=== PATIENT | male | born 1965 | race Caucasian/White ===

== ENCOUNTER 2021-06-20 15:58 | Outpatient (CLI) | payer BC, SELFPAY ==
[2021-06-20] MEDS: 0.9% Saline Lock 10 ML Syringe IV (16:12)
--- NOTE | 2021-06-20 16:15 | NURSING ---
Pt started c/o of Nausea. Noted pt greyish pallar, then pt passed out. Sternal rub did not awaken pt. Pulse noted. SOFTWARE LICENSING ANALYST called. Pt became diaphoretic. Pt slowly became more reponsive. See VS. Dr Malin and SOFTWARE LICENSING ANALYST team requested pt be taken to ER for evaluations. Family notified.
[2021-06-20 16:31] LABS: Bedside Glucose 110 mg/dL (70-110)
[2021-06-20 18:31] VITALS: BP 124/82; PULSE 81; RESP 16; TEMP 38.5; O2SAT 95; BMI 34.2
[2021-06-20 19:00] VITALS: BP 123/82; PULSE 75; RESP 18; TEMP 38.9; O2SAT 100
[2021-06-20] MEDS: Acetaminophen 325 MG Tablet 650 MG PO (19:22)
[2021-06-20 20:10] VITALS: BP 123/82; PULSE 82; RESP 16; TEMP 37.9; O2SAT 100
--- NOTE | 2021-06-20 20:15 | NURSING ---
1815 PT RETURNED FROM ER TO COMPLETE INFUSION.
== END 2021-06-20 20:10 | disposition home or self-care (01) ==
LOC: ICUOUT 15:59 → MS2 15:59
PROVIDERS: Referring Provider Nurse Practitioner Acute Care; Visit Provider Nurse Practitioner Acute Care
DX: Z23 Encounter for immunization (principal); U07.1 COVID-19
CPT/HCPCS: 82962; J7050; M0243; A4216; Q0244

== ENCOUNTER 2021-06-20 16:38 | Emergency (ER) | payer BC, SELFPAY ==
--- NOTE | 2021-06-20 16:18 | EKG12_ITS ---
Test Reason : Blood Pressure : / mmHG Vent. Rate : 081 BPM Atrial Rate : 081 BPM P-R Int : 148 ms QRS Dur : 080 ms QT Int : 364 ms P-R-T Axes : 035 -10 020 degrees QTc Int : 422 ms Normal sinus rhythm Normal ECG Confirmed by FAUSTO PATEL, LUIZ ([id number]), editor book [facility] ([id number]) on 06/26/2021 7:37:08 AM Referred By: Confirmed By:LUIZ LAMBERT MD
[2021-06-20 16:39] VITALS: BP 112/69; PULSE 76; RESP 15; TEMP 37.8; O2SAT 97; BMI 35.0
[2021-06-20 16:43] VITALS: BP 112/69; PULSE 75; PULSE 76; RESP 15; TEMP 37.8; O2SAT 96; O2SAT 97
--- NOTE | 2021-06-20 17:31 | EKG12_ITS ---
Test Reason : SYNCOPE Blood Pressure : / mmHG Vent. Rate : 074 BPM Atrial Rate : 074 BPM P-R Int : 154 ms QRS Dur : 084 ms QT Int : 388 ms P-R-T Axes : 039 002 017 degrees QTc Int : 430 ms Normal sinus rhythm Normal ECG Confirmed by FAUSTO PATEL, LUIZ ([id number]), photograph editor [employer] [employer]ANTE ([id number]) on 06/25/2021 12:40:30 PM Referred By: AURY Confirmed By:LUIZ LAMBERT MD
--- NOTE | 2021-06-20 17:32 | EDS_ITS ---
HPI History of Present Illness Chief Complaint: Syncope Informant: patient Narrative Narrative: Patient is a 55-year-old male with recent diagnosis of Covid presenting after syncopal episode. Patient went to the infusion center today to get a monoclonal antibody infusion. Shortly after receiving the IV he started to feel nauseous. He then became very diaphoretic and pale. Patient lost consciousness. Was described as his eyes rolling back in his head. No report of any seizure activity. After couple minutes patient returned to his baseline. He currently has no complaints. A rapid response was called and he was sent to the emergency room. Patient not yet received any medications. Patient states he still feels a little off which is how is been going to last week with Covid but denies any acute symptoms at this time. No point did he have any chest pain. [facility] Medical History Fatigue SOB (shortness of breath) Home Medications NK 06/20/21 [History Last Taken Unknown] Allergy/AdvReac Type Severity Reaction Status Date / Time Penicillins Allergy Rash Verified 06/20/21 09:03 Family History Father CVA (cerebral vascular accident) Cancer Hypertension Other Arthritis Social History Smoking Status: Former smoker alcohol intake: current alcohol intake frequency: a few times a month [facility] ED Constitutional Constitutional ED: Reports chills, malaise and other Details: syncope ; Denies fever(s) Eyes Eyes: Denies blurry vision or loss of vision ENT ENT ED: Denies rhinorrhea or sore throat Cardiovascular Cardiovascular: Denies chest pain or dizziness Respiratory/Chest Respiratory/Chest: Reports cough; Denies dyspnea Gastrointestinal Gastrointestinal: Reports nausea; Denies vomiting Genitourinary Genitourinary ED: Denies dysuria or hematuria Musculoskeletal Musculoskeletal: Denies arthralgias or myalgias Integumentary Denies rash or wounds Neurologic Neurologic: Denies focal weakness or headache(s) Psychiatric Psychiatric: Denies anxiety or behavioral changes EXAM Physical Exam Const Vital Signs: 06/20/21 16:39 06/20/21 16:43 Temperature 100.1 F H 100.1 F H Temperature Source Oral Oral Pulse Rate 76 76 Respiratory Rate 15 15 Respiratory Effort Normal Respiratory Pattern Normal Blood Pressure 112/69 112/69 Blood Pressure Mean 83 83 Pulse Ox 97 96 Oxygen Delivery Method Room Air Room Air Positive well nourished and well developed General Appearance ED: well developed HEENT Reports moist mucous membranes tenderness Eyes PERRL and EOMs intact bilaterally Neck supple and no JVD Chest Wall inspection of chest normal Resp normal respiratory effort Auscultation: diminished lung sounds bilateral lower Cardio regular rate, regular rhythm and no murmurs GI normal to inspection, nondistended, normoactive bowel sounds Neuro oriented x3 and CN's II-XII intact bilaterally Sensorium / Orientation: alert Motor Exam: Negative for general weakness Psych mental status grossly normal Skin no rashes or lesions noted MDM MDM MDM Narrative Medical decision making narrative: Patient evaluated after syncopal episode shortly after receiving an IV. He currently has Covid. His vital signs are normal. He is asymptomatic at this time. It really sound like he had a vasovagal syncopal episode. EKG is normal. Will discharge back to have his monoclonal an tibody infusion. Did discuss with nurse practitioner at the monoclonal unit who is agreeable with this. Rhythm Strip Rhythm Strip: Sinus Rhythm Rate: 74 Ectopy: None EKG Initial EKG: Attestation: I personally reviewed and interpreted this EKG as follows: Interpretation: Sinus Rhythm Comments: Normal sinus rhythm rate 74 Normal axis Normal intervals Normal ST segments Discharge Plan Triage Chief Complaint: Syncope ED Provider: Crystal Colon Dx/Rx/DC Orders Clinical Impression: Syncope Instructions: ED Fainting, Vagal Reaction Prescriptions: No Action NK RF: 0 Primary Care Provider: Mt Ocampo Referrals: Mt Ocampo MD [Primary Care Provider] - Disposition Disposition: Home, Self Care
== END 2021-06-20 20:46 | disposition home or self-care (01) ==
PROVIDERS: Emergency Provider Emergency Medicine; PCP Family Medicine
DX: R55 Syncope and collapse (principal); Z87.891 Personal history of nicotine dependence; R11.0 Nausea; R61 Generalized hyperhidrosis
CPT/HCPCS: 82962; 93005; 99282; J7050; M0243; A4216; Q0244